=== PATIENT | female | born 1985 | race Two or more races ===

== ENCOUNTER 2018-08-11 22:26 | Emergency (ER) | payer OTHER ==
[~2018-08-11] VITALS: Ht 167.6 cm; Wt 61.2 kg
--- NOTE | 2018-08-11 22:35 | NUR ---
PT RO ER BED 10. AAOX4. AMBULATORY. NAD. CAME IN WITH LEFT UPPER EYELID LACERATION D/T BEING HIT BY AN ELBOW WHILE PLAYING BASKETBALL. NO ACTIVE BLEEDING. NO COMPLAINTS OF PAIN. NO VISUAL CHANGES ON L EYE. AWITING MD FOR EVAL.
[2018-08-11] MEDS ORDERED: TDAP [DIPH/PERTUSSIS/TET] 0.5 ML VIAL IM ONE ×2 (23:30→23:34)
[2018-08-11 23:42] VITALS: BP 106/74
--- NOTE | 2018-08-11 23:43 | NUR ---
Patient discharged to home in stable condition. Written and verbal after care instructions given. Patient verbalizes understanding of instruction. PT AMBULATED OUT WITH A STEADY GAIT. VSS.
== END 2018-08-11 23:43 | disposition home or self-care (01) ==
LOC: ER 22:28
DX: S01.112A Laceration without foreign body of left eyelid and periocular area, initial encounter (principal); W50.0XXA Accidental hit or strike by another person, initial encounter; Y93.89 Activity, other specified; Y92.89 Other specified places as the place of occurrence of the external cause; Y99.8 Other external cause status
CPT/HCPCS: 12011; 90471; 90715; 99283; A6402